=== PATIENT | female | born 1950 | race Caucasian/White ===

== ENCOUNTER 2016-11-29 16:09 | Day surgery (SDCO) | payer MEDICARE, OTHER ==
[~2016-11-29] VITALS: Ht 152 cm; Wt 89.0 kg
[2016-11-29 17:05] LABS: BILIRUBIN NEGATIVE (NEGATIVE); BLOOD 3+ Ery/uL (NEGATIVE); CLARITY CLEAR (CLEAR); COLOR YELLOW (YELLOW); GLUCOSE (U) NORMAL (NORMAL); KETONE (U) NEGATIVE (NEGATIVE); LEUKOCYTES NEGATIVE Leu/uL (NEGATIVE); NITRITE NEGATIVE (NEGATIVE); PROTEIN NEGATIVE (NEGATIVE); SPECIFIC GRAVITY 1.015 (1.001-1.030); UROBILINOGEN 0.2 mg/dL (0.2-1.0)
[2016-11-29 17:10] LABS: BACTERIA TRACE
[2016-11-29 17:10] LABS: BASOPHIL 0.2 % (0-2); HCT 35.3 % (37.0-47.0); HGB 11.9 g/dl (12.5-16.0); LYMPHOCYTE 25.3 % (15-48); MCH 31.4 pg (25.0-31.0); MCHC 33.7 g/dL (32.0-36.0); MCV 93.1 fL (78.0-100.0); MONOCYTE 7.7 % (0-12); NEUTROPHIL 65.8 % (41-80); PLT 291 K/uL (150-400); RBC 3.79 M/uL (4.20-5.40); RDW 13.5 % (11.5-14.0); WBC 9.9 K/uL (4.0-10.5)
[2016-11-29 17:27] LABS: ALBUMIN 4.4 g/dL (3.4-4.8); BILIRUBIN - TOTAL 0.3 mg/dL (0.1-1.0); CREATININE 1.2 mg/dL (0.5-1.0); GLOBULIN (CALCULATION) 3.6 g/dL (2.2-4.2); POTASSIUM 3.2 mmol/L (3.5-5.1)
[2016-11-30 04:49] LABS: HCT 30.6 % (37.0-47.0); HGB 10.2 g/dl (12.5-16.0); MCH 31.2 pg (25.0-31.0); MCHC 33.3 g/dL (32.0-36.0); MCV 93.6 fL (78.0-100.0); MPV 10.1 fL (6.0-9.5); RBC 3.27 M/uL (4.20-5.40); RDW 13.4 % (11.5-14.0); WBC 6.5 K/uL (4.0-10.5)
[2016-11-30 05:07] LABS: CREATININE 1.3 mg/dL (0.5-1.0); POTASSIUM 4.3 mmol/L (3.5-5.1)
[2016-12-01 04:02] LABS: HCT 29.4 % (37.0-47.0); HGB 9.7 g/dl (12.5-16.0); RBC 3.07 M/uL (4.20-5.40); WBC 8.7 K/uL (4.0-10.5)
[2016-12-01 04:03] LABS: MCH 31.6 pg (25.0-31.0); MCV 95.8 fL (78.0-100.0); PLT 232 K/uL (150-400)
[2016-12-01 04:10] LABS: CREATININE 1.4 mg/dL (0.5-1.0); POTASSIUM 4.5 mmol/L (3.5-5.1)
[2016-12-01] MEDS ORDERED: ACETAMINOPHEN325 MG PO (12:45)
[2016-12-01] MEDS ORDERED: MICRO-K10 MEQ PO (12:46)
[2016-12-01] MEDS ORDERED: NORCO 5-325 TA1 EACH PO (12:46)
[2016-12-01] MEDS ORDERED: ALLOPURINOL300 MG PO (12:47)
[2016-12-01] MEDS ORDERED: LIPITOR20 M1 PO (12:47)
== END 2016-12-01 13:55 | disposition home or self-care (01) ==
LOC: FER 16:09 → FMS 17:20
PROVIDERS: Emergency Medicine; ADMIT Internal Medicine
DX: K35.80 Unspecified acute appendicitis (principal); K66.0 Peritoneal adhesions (postprocedural) (postinfection); K21.9 Gastro-esophageal reflux disease without esophagitis; I10 Essential (primary) hypertension; E78.5 Hyperlipidemia, unspecified; M10.9 Gout, unspecified; Z98.890 Other specified postprocedural states; Z79.899 Other long term (current) drug therapy
CPT/HCPCS: 36415; 71010; 80048; 80053; 81001; 85025; 87040; 87088; 88304; 93005; C9113; G0378; J2405; J2543; J2704; J2710; J3010